=== PATIENT | male | born 1960 | race Caucasian/White ===

== ENCOUNTER 2017-06-28 09:14 | Outpatient (CLI) | payer OTHER | END 2017-06-28 16:09 | disposition home or self-care (01) | LOC: RAD 09:14 | DX: M12.9 Arthropathy, unspecified (principal); M19.90 Unspecified osteoarthritis, unspecified site ==

== ENCOUNTER 2017-09-17 07:32 | Outpatient (CLI) | payer OTHER | END 2017-09-17 07:34 | disposition home or self-care (01) | LOC: SONOGRAMA 07:32 | DX: R22.1 Localized swelling, mass and lump, neck (principal) ==

== ENCOUNTER 2023-07-12 07:39 | Outpatient (CLI) | payer OTHER | END 2023-07-12 07:43 | disposition home or self-care (01) | LOC: RX STUDY 07:39 | PROVIDERS: ATTEND Internal Medicine Gastroenterology | DX: R13.19 Other dysphagia (principal) ==

== ENCOUNTER → 2024-01-09 08:34 | Outpatient (CLI) | payer OTHER ==
[2024-01-09 09:32] LABS: URINE APPEARANCE Clear; URINE BILIRRUBIN Negative (NEGATIVE); URINE BLOOD Negative; URINE COLOR Yellow; URINE GLUCOSE Negative (NEGATIVE); URINE KETONE Negative (NEGATIVE); URINE LEUKOCYTE Negative; URINE NITRATE Negative; URINE PROTEIN Negative (NEGATIVE)
[2024-01-09 09:37] LABS: HEMATOCRIT 41.6 % (39.0-48.0); HEMOGLOBIN 14.2 g/dL (13-16.00); MEAN CELL VOLUME 93.1 fL (80.0-100.00); MEAN CORPUSCULAR HEMOGLOBIN 31.8 pg (27.00-32.0); MEAN CORPUSCULAR HGB CONC 34.2 g/dl (32.0-36.0); PLATELET COUNT 207 K/uL (150-450); RED BLOOD COUNT 4.47 M/uL (4.00-6.00); RED CELL DISTRIBUTION WIDTH 14.8 % (11.5-14.5)
[2024-01-09 09:37] LABS: URINE BACTERIA 7.5 uL (0.0-1933); URINE EPITHELIAL CELLS 1.5 uL (0.0-38.8); URINE RBC 10.9 uL (0.0-20.8)
[2024-01-09 10:18] LABS: CALCIUM 9.5 mg/dL (8.5-10.1); CHOL HDL RATIO 5.1 (0-5.0); CREATININE SERUM 0.76 mg/dL (0.70-1.30); GFR 103.59; POTASSIUM 4.14 mEq/L (3.5-5.1); T4 TOTAL 7.34 UG/DL (4.5-12.1); TSH 3.59 uIU/mL (0.358-3.74)
[2024-01-09 10:19] LABS: URINE CAST 0.15 uL (0.0-1.40)
[2024-01-09 10:20] LABS: URINE CRYSTALS FEW /HPF
== END | disposition home or self-care (01) ==
LOC: LAB 08:34
PROVIDERS: ATTEND Internal Medicine Cardiovascular Disease
DX: E78.2 Mixed hyperlipidemia (principal); E03.9 Hypothyroidism, unspecified; E11.9 Type 2 diabetes mellitus without complications; I10 Essential (primary) hypertension

== ENCOUNTER 2024-07-15 10:25 | Outpatient (CLI) | payer OTHER | END 2024-07-15 10:35 | disposition home or self-care (01) | LOC: TOM 10:25 | PROVIDERS: ATTEND Otolaryngology | DX: R22.1 Localized swelling, mass and lump, neck (principal); N40.1 Benign prostatic hyperplasia with lower urinary tract symptoms; R97.20 Elevated prostate specific antigen [PSA] | CPT/HCPCS: 70491; 74176; Q9965 ==